=== PATIENT | male | born 1965 | race African-American/Black ===

== ENCOUNTER 2021-03-05 10:35 | Emergency (ER) | payer OTHER ==
[~2021-03-05] VITALS: Ht 175.3 cm; Wt 70.0 kg
[2021-03-05 10:38] VITALS: BP 130/87
[2021-03-05] MEDS ORDERED: DIPH,PERTUSS(ACELL),TET VAC/PF 0.5 ML SYRINGE. VAX IM ONE (12:45)
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
== END 2021-03-05 13:20 | disposition home or self-care (01) ==
LOC: ER 10:35
DX: S61.012A Laceration without foreign body of left thumb without damage to nail, initial encounter (principal); F20.9 Schizophrenia, unspecified; F19.10 Other psychoactive substance abuse, uncomplicated; W26.8XXA Contact with other sharp object(s), not elsewhere classified, initial encounter; Y93.89 Activity, other specified; Y92.89 Other specified places as the place of occurrence of the external cause; Y99.8 Other external cause status
CPT/HCPCS: 12001; 90471; 90715; 99283